=== PATIENT | female | born 1955 | race Caucasian/White ===

== ENCOUNTER 2017-04-06 10:54 | Emergency (ER) | payer SELFPAY ==
[2017-04-06 11:05] VITALS: RESP 16
[2017-04-06] MEDS ORDERED: SODIUM CHLORIDE 0.9% 1,000 ML IV STA ×2 (12:00)
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
[2017-04-06 13:01] LABS: Basophils % (A) 0 %; CH 28.8; CHCM 33.4; Eosinophils % (A) 0 %; HCT 42.7 % (34.0-46.0); HDW 2.46; HGB 14.1 gm/dL (11.4-16.0); Luc # (Auto) 0.14; Luc % (Auto) 1; Lymphocytes # (A) 1.7 k/uL (1.0-4.8); Lymphocytes % (A) 18 %; MCH 28.6 pg (25.0-35.0); MCHC 33.1 g/dL (31.0-37.0); MCV 86.6 fL (80.0-100.0); Mean Platelet Volume 7.2; Monocytes # (A) 0.4 k/uL (0-1.0); Monocytes % (A) 5 %; Neutrophils # (A) 7.2 k/uL (1.3-7.7); Neutrophils % (A) 76 %; RBC 4.94 m/uL (3.80-5.40); RDW 12.2 % (11.5-15.5); WBC 9.5 k/uL (3.8-10.6); WBC (Perox) 8.96
[2017-04-06 13:12] LABS: ALT 50 U/L (9-52); AST 24 U/L (14-36); Alkaline Phosphatase 72 U/L (38-126); Amylase <30 U/L (30-110); Anion Gap 10 mmol/L; Blood Urea Nitrogen 20 mg/dL (7-17); Calcium 9.8 mg/dL (8.4-10.2); Carbon Dioxide 28 mmol/L (22-30); Chloride 101 mmol/L (98-107); Glucose 135 mg/dL (74-99); Non-African American GFR(MDRD) >60 (>60 ml/min/1.73 sqM); Potassium 4.6 mmol/L (3.5-5.1); Sodium 139 mmol/L (137-145); Total Bilirubin 0.6 mg/dL (0.2-1.3); Total Protein 6.8 g/dL (6.3-8.2)
[2017-04-06 13:18] LABS: Creatine Kinase 43 U/L (30-135)
[2017-04-06 13:31] LABS: Creatine Kinase MB 1.1 ng/mL (0.0-2.4); Troponin I <0.012 ng/mL (0.000-0.034)
[2017-04-06 14:22] LABS: Appearance,Urine Cloudy (Clear); Bilirubin,Urine Negative (Negative); Glucose,Urine (UA) Negative (Negative); Ketones,Urine Negative (Negative); Leukocyte Esterase,Urine Large (Negative); Mucus,Urine Many /hpf; Nitrite,Urine Negative (Negative); PH, Urine 5.5 (5.0-8.0); Particle Count 23048; Protein,Urine 1+ (Negative); Specific Gravity,Urine 1.023 (1.001-1.035); Squamous Epithelial Cell,Urine 9 /hpf (0-4); UA Billing (MACRO vs. MICRO) MICRO; Urobilinogen,Urine <2.0 mg/dL (<2.0); WBC,Urine 28 /hpf (0-5)
--- NOTE | 2017-04-06 14:51 | US ---
EXAMINATION TYPE: US gallbladder DATE OF EXAM: 04/06/2017 COMPARISON: NONE CLINICAL HISTORY: Pain. Vomiting and diarrhea last night. Nausea and loss of appetite for 1 week EXAM MEASUREMENTS: Liver Length: 19.3 cm Gallbladder Wall: 0.2 cm CBD: 0.4 cm Right Kidney: 11.1 x 4.9 x 4.5 cm Pancreas: Obscured by bowel gas Liver: hyperechoic area noted adjacent to a hypoechoic focus next to the yordy hepatitis = 2.0 x 1.5 x 1.9cm Gallbladder: no evidence of stones Evidence for sonographic Lr's sign: no CBD: wnl Right Kidney: no evidence of hydronephrosis or mass There is no ascites. Right kidney shows normal cortical medullary differentiation. IMPRESSION: Findings may represent fatty infiltration of liver with some focal fatty sparing near the yordy hepatis, MRI of the liver could be performed for better characterization. There is hepatomegal y. Exam is somewhat limited.
[2017-04-06 15:24] VITALS: BP 131/78; PULSE 63; TEMP 97.9
--- NOTE | 2017-04-06 15:35 | XR ---
EXAMINATION TYPE: XR KUB DATE OF EXAM: 04/06/2017 3:25 PM CLINICAL HISTORY: Nausea and vomiting with abdominal pain. TECHNIQUE: Single upright abdominal radiograph was obtained. COMPARISON: Right upper quadrant ultrasound dated 04/06/2017. FINDINGS: Scattered gas is seen in non-distended small bowel loops. Gas and fecal material is seen in non-distended colon. There is no visceromegaly, pneumoperitoneum, or abnormal calcification apprecia kiersten. The lung bases are clear and the osseous structures are intact. IMPRESSION: Nonobstructive bowel gas pattern.
== END 2017-04-06 15:45 | disposition home or self-care (01) ==
LOC: EC 10:54
DX: K52.9 Noninfective gastroenteritis and colitis, unspecified (principal); Z87.891 Personal history of nicotine dependence; Z91.018 Allergy to other foods; Z91.048 Other nonmedicinal substance allergy status; Z88.6 Allergy status to analgesic agent
CPT/HCPCS: 36415; 74000; 76705; 80053; 81001; 82150; 82550; 82553; 83690; 84484; 85025; 96360; 96361; 99284

== ENCOUNTER 2019-10-15 17:11 | Emergency (ER) | payer OTHER ==
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
[2019-10-15 20:14] VITALS: BP 140/90; PULSE 80; RESP 18; TEMP 98.1
== END 2019-10-15 20:13 | disposition home or self-care (01) ==
LOC: EC 17:11
DX: R20.2 Paresthesia of skin (principal); R91.8 Other nonspecific abnormal finding of lung field; M79.622 Pain in left upper arm; M54.2 Cervicalgia; Z91.018 Allergy to other foods; Z88.6 Allergy status to analgesic agent; Z87.39 Personal history of other diseases of the musculoskeletal system and connective tissue; Z87.891 Personal history of nicotine dependence; V44.5XXA Car driver injured in collision with heavy transport vehicle or bus in traffic accident, initial encounter; Y92.488 Other paved roadways as the place of occurrence of the external cause; Y93.89 Activity, other specified
CPT/HCPCS: 70450; 71046; 72125; 99284

== ENCOUNTER → 2019-12-23 | Outpatient (CLI) | payer OTHER | END | disposition home or self-care (01) | LOC: RADMRIMAIN 18:34 | PROVIDERS: ATTEND Family Medicine | DX: Z53.9 Procedure and treatment not carried out, unspecified reason (principal) ==

== ENCOUNTER → 2020-03-25 | Outpatient (CLI) | payer OTHER ==
[2020-03-25 09:04] VITALS: BP 193/96; PULSE 73; RESP 14; TEMP 97.8
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
== END | disposition home or self-care (01) ==
LOC: PNWHC3 08:35
PROVIDERS: ATTEND Anesthesiology
DX: M54.5 Low back pain (principal); Z87.892 Personal history of anaphylaxis; Z88.6 Allergy status to analgesic agent; Z79.891 Long term (current) use of opiate analgesic; Z79.899 Other long term (current) drug therapy
CPT/HCPCS: 99211

== ENCOUNTER 2020-04-14 13:06 | Day surgery (SDC) | payer OTHER ==
[2020-04-10 13:03] VITALS: BMI 36.7
[~2020-04-14 13:06] MED LIST: LACTATED RINGERS 1,000 ML IV SCH
[2020-04-14 13:26] VITALS: TEMP 97.3
[2020-04-14] MEDS ORDERED: methylPREDNISolone ACETATE 40 MG/ML 1 ML VIAL ONE (13:32)
[2020-04-14] MEDS ORDERED: IOPAMIDOL M200 10 ML VIAL ONE (13:32)
[2020-04-14] MEDS ORDERED: fentaNYL (PF) 50 MCG/ML 2 ML AMP ONE (13:32)
[2020-04-14] MEDS ORDERED: MIDAZOLAM 2 MG/2 ML VIAL ONE (13:32)
--- NOTE | 2020-04-14 13:55 | P.PCN ---
Date of Procedure: 04/14/20 Procedure(s) Performed: PREOPERATIVE DIAGNOSIS:1- Lumbar radiculopathy . 2-left sacroiliitis. 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 PROCEDURE 1. Transforaminal epidural steroid injection under fluoroscopic guidance at left L4-5 level. (Fluoroscopy images stored on file in the radiology Department ) 2. Lumbar epidurogram . ANESTHESIA: Local with 1% lidocaine 3 ml , moderate sedation with intravenous Versed 2 mg and fentanyle 50 micrograms. EBL: Minimal PROCEDURE INDICATION: The patient with low back pain and radiculopathy symptoms unresponsive to conservative treatment. PROCEDURE DESCRIPTION / TECHNIQUE: The patient was seen and identified in the preoperative area. Risks, benefits, complications, and alternatives were discussed with the patient. The patient agreed to proceed with the procedure and signed the consent. IV was started, and vital signs were stable. Patient was taken to the OR and time out was completed. The patient was placed in the prone position on procedure table and a pillow was placed under the abdomen to reduce lumbar lordosis. The lumbosacral area was prepped and draped in the usual sterile fashion. Critical pause was taken. Vital signs were closely monitored during the procedure. Conscious sedation was used during the procedure to decrease patient s anxiety. Using oblique fluoroscopy, the chin of the ``Florin dog at left L4-5 level was identified, and the skin and deeper tissues just below was localized with 1% lidocaine. Subsequently, a 22-gauge 5-inch spinal needle was advanced under a tunneled view fluoroscopic guidance just underneath the chin of the ``Florin dog at the left L4-5 Under lateral fluoroscopy, the needle was then advanced to the posterior border of the interforaminal space. After negative aspiration of CSF and blood and with no paresthesias, 1 mL Isovue 200 contrast dye was injected excellent epidurogram and outlining of the nerve root Subsequently, 3 mL of block solution containing 80 mg Depo-Medrol and 2 mL of 0.9% normal saline PF was injected. Needle was removed intact . At the end of the procedure, skin was cleansed, and bandages were applied. COMPLICATIONS:none DISPOSITION / PLANS: The patient was placed in a supine position and transferred to the recovery area in a stable condition for observation. There was no evidence of lower extremity motor or sensory deficit after the procedure. Patient was discharged from the recovery room after meeting discharge criteria. Home discharge instructions were given to the patient by the staff. The patient was reexamined prior to discharge.
[2020-04-14 14:05] VITALS: RESP 16
[2020-04-14] MEDS ORDERED: IV FLUID CONTINUATION 750 ML IV ONE (14:06)
--- NOTE | 2020-04-14 14:25 | FL ---
EXAMINATION TYPE: FL guided pain mgmt statistic DATE OF EXAM: 04/14/2020 CLINICAL HISTORY: Low back pain. TECHNIQUE: Fluoroscopy. COMPARISON: None. FINDINGS: Fluoroscopic guidance was provided during pain relief procedure performed by Dr. Pineda . A total of 23 seconds of fluoroscopic time was utilized during the procedure and 1 spot images are acquired. Single image acquired shows needle localization in the lower lumbar spine. IMPRESSION: As Above.
[2020-04-14 14:36] VITALS: BP 131/79; PULSE 101
== END 2020-04-14 14:37 | disposition home or self-care (01) ==
LOC: ORPAIN 13:06
PROVIDERS: ATTEND Specialist
DX: M54.16 Radiculopathy, lumbar region (principal); M46.1 Sacroiliitis, not elsewhere classified; M96.1 Postlaminectomy syndrome, not elsewhere classified; Z78.0 Asymptomatic menopausal state; Z88.6 Allergy status to analgesic agent; Z91.018 Allergy to other foods
CPT/HCPCS: 64483; J2250; J1030; J3010; Q9966; 99152

== ENCOUNTER 2020-05-19 08:49 | Day surgery (SDC) | payer OTHER ==
[2020-05-14 11:39] VITALS: BMI 36.3
[2020-05-19] MEDS ORDERED: LACTATED RINGERS 1,000 ML IV SCH (09:11)
[2020-05-19 09:17] VITALS: RESP 18; TEMP 96.8
[2020-05-19] MEDS ORDERED: MIDAZOLAM 2 MG/2 ML VIAL ONE (09:55)
[2020-05-19] MEDS ORDERED: methylPREDNISolone ACETATE 40 MG/ML 1 ML VIAL ONE (09:55)
[2020-05-19] MEDS ORDERED: fentaNYL (PF) 50 MCG/ML 2 ML AMP ONE (09:55)
[2020-05-19] MEDS ORDERED: IOPAMIDOL M200 10 ML VIAL ONE (09:55)
--- NOTE | 2020-05-19 10:11 | P.PCN ---
Date of Procedure: 05/19/20 Procedure(s) Performed: PREOPERATIVE DIAGNOSIS:1- Lumbar radiculopathy . 2-left sacroiliitis. 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 PROCEDURE 1. Transforaminal epidural steroid injection under fluoroscopic guidance at left L4-5 level. (Fluoroscopy images stored on file in the radiology Department ) 2. Lumbar epidurogram . ANESTHESIA: Local with 1% lidocaine 3 ml , moderate sedation with intravenous Versed 1 mg and fentanyle 50 micrograms. EBL: Minimal PROCEDURE INDICATION: The patient with low back pain and radiculopathy symptoms unresponsive to conservative treatment. PROCEDURE DESCRIPTION / TECHNIQUE: The patient was seen and identified in the preoperative area. Risks, benefits, complications, and alternatives were discussed with the patient. The patient agreed to proceed with the procedure and signed the consent. IV was started, and vital signs were stable. Patient was taken to the OR and time out was completed. The patient was placed in the prone position on procedure table and a pillow was placed under the abdomen to reduce lumbar lordosis. The lumbosacral area was prepped and draped in the usual sterile fashion. Critical pause was taken. Vital signs were closely monitored during the procedure. Conscious sedation was used during the procedure to decrease patient s anxiety. Using oblique fluoroscopy, the chin of the ``Florin dog at left L4-5 level was identified, and the skin and deeper tissues just below was localized with 1% lidocaine. Subsequently, a 22-gauge 5-inch spinal needle was advanced under a tunneled view fluoroscopic guidance just underneath the chin of the ``Florin dog at the left L4-5 Under lateral fluoroscopy, the needle was then advanced to the posterior border of the interforaminal space. After negative aspiration of CSF and blood and with no paresthesias, 1 mL Isovue 200 contrast dye was injected excellent epidurogram and outlining of the nerve root Subsequently, 3 mL of block solution containing 80 mg Depo-Medrol and 2 mL of 0.9% normal saline PF was injected. Needle was removed intact . At the end of the procedure, skin was cleansed, and bandages were applied. COMPLICATIONS:none DISPOSITION / PLANS: The patient was placed in a supine position and transferred to the recovery area in a stable condition for observation. There was no evidence of lower extremity motor or sensory deficit after the procedure. Patient was discharged from the recovery room after meeting discharge criteria. Home discharge instructions were given to the patient by the staff. The patient was reexamined prior to discharge.
[2020-05-19 10:20] VITALS: PULSE 108
[2020-05-19 10:34] VITALS: BP 148/90
[2020-05-19] MEDS ORDERED: IV FLUID CONTINUATION 1,000 ML IV ONE (10:34)
--- NOTE | 2020-05-19 14:00 | FL ---
Fluoroscopy HISTORY: Pain 8 seconds fluoroscopy time supplied to the referring clinician. 1 intraoperative C-arm images docume nt the procedure. See dictated report from anesthesia.
== END 2020-05-19 10:44 | disposition home or self-care (01) ==
LOC: ORPAIN 08:49
PROVIDERS: ATTEND Specialist
DX: M96.1 Postlaminectomy syndrome, not elsewhere classified (principal); M46.1 Sacroiliitis, not elsewhere classified; Z78.0 Asymptomatic menopausal state
CPT/HCPCS: 64483; J2250; J1030; J3010; Q9966; 99152

== ENCOUNTER → 2020-06-08 | Outpatient (CLI) | payer OTHER ==
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
[2020-06-08 14:36] VITALS: BP 156/92; PULSE 113; RESP 18; TEMP 98
== END | disposition home or self-care (01) ==
LOC: PNWHC3 13:50
PROVIDERS: ATTEND Anesthesiology
DX: M96.1 Postlaminectomy syndrome, not elsewhere classified (principal); M48.061 Spinal stenosis, lumbar region without neurogenic claudication; M51.36 Other intervertebral disc degeneration, lumbar region; M47.816 Spondylosis without myelopathy or radiculopathy, lumbar region
CPT/HCPCS: 99211

== ENCOUNTER 2020-07-07 12:45 | Day surgery (SDC) | payer OTHER ==
[2020-07-03 16:10] VITALS: BMI 36.6
[2020-07-07 13:13] VITALS: TEMP 97
[2020-07-07] MEDS ORDERED: LACTATED RINGERS 1,000 ML IV ONE ×2 (13:14)
[2020-07-07] MEDS ORDERED: fentaNYL (PF) 50 MCG/ML 2 ML AMP ONE (13:17)
[2020-07-07] MEDS ORDERED: MIDAZOLAM 2 MG/2 ML VIAL ONE (13:17)
[2020-07-07] MEDS ORDERED: DEXAMETHASONE SOD PHOSPHATE 10 MG/ML 1 ML VIAL ONE (13:17)
[2020-07-07] MEDS ORDERED: IOPAMIDOL M200 10 ML VIAL ONE (13:17)
--- NOTE | 2020-07-07 13:39 | P.PCN ---
Date of Procedure: 07/07/20 Description of Procedure: PREOPERATIVE DIAGNOSIS: Lumbar radiculopathy POSTOPERATIVE DIAGNOSIS: Lumbar radiculopathy Attending physician: Chandrakant Gay M.D. PROCEDURE 1. Transforaminal epidural steroid injection under fluoroscopic guidance L3-4 and L4-L5 level, left side 2. Lumbar epidurogram ANESTHESIA: Local with 1% lidocaine 3 ml ; IV sedation with Versed and fentanyl , sedation time 17 min PROCEDURE INDICATION: The patient with low back pain and radiculopathy symptoms unresponsive to conservative treatment. Fluoroscopy was used for the procedure and fluoroscopic images were saved to the radiology portion of patient's chart. PROCEDURE DESCRIPTION / TECHNIQUE: The patient was seen and identified in the preoperative area. Risks, benefits, complications, and alternatives were discussed with the patient. The patient agreed to proceed with the procedure and signed the consent. IV was started, and vital signs were stable. Patient was taken to the OR and time out was completed. The patient was placed in the prone position on procedure table and a pillow was placed under the abdo men to reduce lumbar lordosis. The lumbosacral area was prepped and draped in the usual sterile fashion. Vital signs were closely monitored during the procedure. Conscious sedation was used. Using oblique fluoroscopy, the chin of the ``Florin dog and the skin and deeper tissues just below was localized with 1% lidocaine. Subsequently, a 22- gauge 3.5-inch spinal needle was advanced under a tunneled view fluoroscopic guidance just underneath the chin of the ``Florin dog . Under lateral fluoroscopy, the needle was then advanced to the posterior border of the foramen. After negative aspiration of CSF and blood and with no paresthesias, 1 mL of Isovue-200 contrast dye was injected under live fluoroscopy and there was no evidence of intravascular injection. The injectate solution consisting of 5 mg of dexamethasone with 1.5 mL of 1% lidocaine was then delivered. The needle was withdrawn intact. Procedure was repeated at the below level L4-L5. Total of 10 mg of dexamethasone was given. At the end of the procedure, skin was cleansed, and bandages were applied. COMPLICATIONS: None COMMENTS: DISPOSITION / PLANS: The patient was placed in a supine position and transferred to the recovery area in a stable condition for observation. There was no evidence of lower extremity motor or sensory deficit after the procedure. Patient was discharged from the recovery room after meeting discharge criteria. Home discharge instructions were given to the patient by the staff. The patient will follow up in clinic in 2-4 weeks.
[2020-07-07] MEDS ORDERED: IV FLUID CONTINUATION 450 ML IV ONE (13:46)
[2020-07-07 13:55] VITALS: PULSE 105; RESP 20
--- NOTE | 2020-07-07 13:58 | FL ---
EXAMINATION TYPE: FL guided pain mgmt statistic DATE OF EXAM: 07/07/2020 HISTORY: Fluoroscopy time 41 seconds of fluoroscopy provided. IMPRESSION: 1. Fluoroscopy time.
[2020-07-07 14:06] VITALS: BP 134/77
== END 2020-07-07 14:17 | disposition home or self-care (01) ==
LOC: ORPAIN 12:45
PROVIDERS: ATTEND Anesthesiology
DX: M54.16 Radiculopathy, lumbar region (principal); Z78.0 Asymptomatic menopausal state; Z88.6 Allergy status to analgesic agent; Z79.891 Long term (current) use of opiate analgesic
CPT/HCPCS: 64483; 64484; J2250; J1100; J3010; Q9966; 99152

== ENCOUNTER → 2020-07-29 | Outpatient (CLI) | payer OTHER ==
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
== END ==
CPT/HCPCS: 99211

== ENCOUNTER → 2020-10-30 | Outpatient (CLI) | payer SELFPAY ==
[2020-10-30 15:32] LABS: Appearance,Urine Clear (Clear); Bilirubin,Urine Negative (Negative); Blood,Urine Small (Negative); Color,Urine Yellow; Glucose,Urine (UA) Negative (Negative); Ketones,Urine Negative (Negative); Leukocyte Esterase,Urine Negative (Negative); Mucus,Urine Rare /hpf; Nitrite,Urine Negative (Negative); Protein,Urine Negative (Negative); RBC,Urine 7 /hpf (0-5); Specific Gravity,Urine 1.022 (1.001-1.035); Squamous Epithelial Cell,Urine 1 /hpf (0-4); Urobilinogen,Urine <2.0 mg/dL (<2.0); WBC,Urine 1 /hpf (0-5)
[2020-10-30 15:49] LABS: INR 0.9 (<1.2); Partial Thromboplastin Time 22.1 sec (22.0-30.0)
[2020-10-30 23:21] LABS: HCT 40.1 % (37.2-46.3); HGB 12.6 g/dL (12.0-15.0); MCH 26.8 pg (27.0-32.0); MCHC 31.4 g/dL (32.0-37.0); MCV 85.3 fL (80.0-97.0); Mean Platelet Volume 11.2 fL (9.5-12.2); Platelet Count 267 X 10*3/uL (140-440); RDW 11.9 % (11.5-14.5); WBC 8.13 X 10*3/uL (4.50-10.00)
[2020-10-31 00:51] LABS: Hemoglobin A1C 8.4 % (4.0-6.0)
[2020-10-31 02:26] LABS: African American GFR (CKD) 111.6 (60.0-200.0); Calcium 9.8 mg/dL (8.7-10.3); Carbon Dioxide 27.7 mmol/L (21.6-31.8); Chloride 106 mmol/L (96-109); Glucose 200 mg/dL (70-110); Non-African American GFR(CKD) 96.3 (60.0-200.0); Potassium 4.7 mmol/L (3.5-5.5); Sodium 144 mmol/L (135-145)
== END | disposition home or self-care (01) ==
LOC: LABWHC1 14:20
PROVIDERS: ATTEND Orthopaedic Surgery
DX: Z01.812 Encounter for preprocedural laboratory examination (principal)
CPT/HCPCS: 36415; 80048; 81001; 82306; 83036; 84134; 84439; 84443; 84481; 85027; 85610; 85730; 87070

== ENCOUNTER → 2020-11-02 | Outpatient (CLI) | payer SELFPAY ==
--- NOTE | 2020-11-02 11:06 | XR ---
EXAMINATION TYPE: XR thoracic spine 2V DATE OF EXAM: 11/02/2020 COMPARISON: NONE HISTORY: Pain TECHNIQUE: 3 views submitted FINDINGS: Alignment is anatomic. There is no compression deformities hypertrophic and degenerative changes not ed. IMPRESSION: 1. Multilevel degenerative disc disease.
--- NOTE | 2020-11-02 11:08 | XR ---
EXAM TYPE: LUMBAR SPINE X RAY SERIES COMPARISON: 01/13/2012 HISTORY: Pain TECHNIQUE: 4 views are submitted. FINDINGS: Alignment is anatomic. The pedicles are intact. The transverse processes are intact. There is diff use osteopenia. Multilevel hypertrophic degenerative changes seen. Stable grade 1 anterolisthesis L4 on L5. Chronic appearing deformity superior endplate L2. Facet arthropathy L3-4, L4-5 and L5-S1. Ante rolisthesis present on both flexion and extension views at L4-5. IMPRESSION: 1. Multilevel degenerative disc disease with grade 1 anterolisthesis L4 on L5. Similar to the prior e xam. 2. Multilevel facet arthropathy.
== END | disposition home or self-care (01) ==
LOC: RADXRMAIN 09:35
PROVIDERS: ATTEND Orthopaedic Surgery
DX: M51.35 Other intervertebral disc degeneration, thoracolumbar region (principal); M12.88 Other specific arthropathies, not elsewhere classified, other specified site; M43.16 Spondylolisthesis, lumbar region
CPT/HCPCS: 72070; 72114

== ENCOUNTER → 2020-12-17 | Outpatient (CLI) | payer OTHER ==
[2020-12-17 14:35] LABS: HCT 40.6 % (34.0-46.0); HGB 13.6 gm/dL (11.4-16.0); MCH 28.1 pg (25.0-35.0); MCHC 33.4 g/dL (31.0-37.0); MCV 84.1 fL (80.0-100.0); Mean Platelet Volume 7.7; Platelet Count 283 k/uL (150-450); RBC 4.82 m/uL (3.80-5.40); RDW 12.9 % (11.5-15.5); WBC 7.1 k/uL (3.8-10.6)
[2020-12-17 14:44] LABS: African American GFR (CKD) >90 (>60 ml/min/1.73 sqM); Anion Gap 7 mmol/L; Blood Urea Nitrogen 13 mg/dL (7-17); Carbon Dioxide 27 mmol/L (22-30); Chloride 106 mmol/L (98-107); Non-African American GFR(CKD) >90 (>60 ml/min/1.73 sqM); Potassium 4.5 mmol/L (3.5-5.1); Sodium 140 mmol/L (137-145)
== END | disposition home or self-care (01) ==
LOC: LABPAT 12:44
PROVIDERS: ATTEND Internal Medicine Interventional Cardiology
DX: Z01.812 Encounter for preprocedural laboratory examination (principal); I48.11 Longstanding persistent atrial fibrillation
CPT/HCPCS: 36415; 80051; 82565; 84520; 85027

== ENCOUNTER 2020-12-21 05:51 | Day surgery (SDC) | payer OTHER ==
[2020-12-17 12:06] VITALS: BMI 37.8
[2020-12-21] MEDS ORDERED: SODIUM CHLORIDE 0.9% 1,000 ML IV SCH (06:35)
[2020-12-21] MEDS ORDERED: LACTATED RINGERS 1,000 ML IV SCH (06:35)
[2020-12-21 06:42] LABS: Glucose,Whole Blood 140 mg/dL (75-99)
[2020-12-21 06:45] VITALS: RESP 16; TEMP 98
[2020-12-21] MEDS: BENZOCAINE SPRAY 1 CAN TOPICAL ONE ×2 (07:30→07:40)
[2020-12-21] MEDS ORDERED: LIDOCAINE 1% INJ 10MG/ML (20 ML MDV) ONE (07:30)
[2020-12-21] MEDS ORDERED: PROPOFOL 10 MG/ML 20 ML VIAL IV ONE (07:30)
--- NOTE | 2020-12-21 13:07 | CE ---
CARDIAC ELECTROPHYSIOLOGY REPORT DATE OF SERVICE: December 21, 2020. PERFORMING PHYSICIAN: Adrián Dowell MD. PROCEDURE PERFORMED: Cardioversion of atrial fibrillation. COMPLICATION: None. LEVEL OF SEDATION: The procedure was performed using propofol with LABORER PLUMBING in the room. PROCEDURE DESCRIPTION: After transesophageal echocardiogram was performed and intracardiac thrombus was ruled out, we pursued cardioversion with the patient. Cardioverted from atrial fibrillation to normal sinus mechanism using 200 joules on first attempt. CONCLUSION: Successful cardioversion of atrial fibrillation to normal sinus mechanism using 200 joules on first attempt. MMODL / IJN: [id number] /
--- NOTE | 2020-12-21 13:08 | ECHOT ---
TRANSESOPHAGEAL ECHOCARDIOGRAM DATE OF SERVICE: December 21, 2020. PERFORMING PHYSICIAN: Adrián Dowell MD. PROCEDURE PERFORMED: Transesophageal echocardiogram. INDICATION: Rule out intracardiac thrombus before cardioversion. COMPLICATION: None. LEVEL OF SEDATION: The procedure was performed using propofol with BUSINESS DEVELOPMENT REPRESENTATIVE in the room. PROCEDURE DESCRIPTION: After obtaining informed consent, the patient was brought to the recovery room. The pulse oximetry and heart rate monitors were attached to the patient. Subsequently and after the patient was sedated using propofol, the transesophageal echocardiogram probe was advanced to the mid esophageal where 2D echocardiogram images as well as color Doppler images of various cardiac structures were obtained. Particular attention was made to the left atrial appendage. The procedure was completed without any complication. FINDINGS: The left ventricle is dilated. The left ventricular systolic function is impaired with EF around 40% with global hypokinesia. The right ventricle appeared to be of normal size and function. The left atrium appeared to be mildly dilated. The left atrial appendage appeared to be free from any thrombus. The interatrial septum appeared to be intact without any evidence of shunt. The aortic valve appeared to be trileaflet valve without stenosis or regurgitation. The mitral valve seems to be mildly thickened with moderate mitral regurgitation. There was mild to moderate tricuspid regurgitation. CONCLUSION: 1. Intact left atrial appendage without any evidence of thrombus. 2. Intact interatrial septum without any evidence of shunt. 3. Impaired LV function with EF around 40% with global hypokinesia. 4. Thickened mitral valve leaflets with moderate mitral regurgitation. 5. Trileaflet aortic valve without stenosis or regurgitation. 6. Normal pulmonic valve with mild pulmonic insufficiency. 7. No evidence of pericardial effusion. MMODL / IJN: [id number] /
[2020-12-21 16:25] VITALS: BP 131/69; PULSE 78
== END 2020-12-21 09:30 | disposition home or self-care (01) ==
LOC: CATHCVL 05:51 → EDSTATUS 07:30 → CATHCVL 09:30
PROVIDERS: ATTEND Internal Medicine Interventional Cardiology
DX: I48.91 Unspecified atrial fibrillation (principal); E11.9 Type 2 diabetes mellitus without complications; I10 Essential (primary) hypertension; I48.0 Paroxysmal atrial fibrillation; I34.0 Nonrheumatic mitral (valve) insufficiency; E07.9 Disorder of thyroid, unspecified; Q21.1 Atrial septal defect; I51.89 Other ill-defined heart diseases; Z79.01 Long term (current) use of anticoagulants
CPT/HCPCS: 93312; 93320; 93325; 92960; J2001; J2704

== ENCOUNTER → 2021-04-20 | Outpatient (CLI) | payer OTHER ==
[2021-04-20 11:22] LABS: INR 0.9 (<1.2); Partial Thromboplastin Time 23.8 sec (22.0-30.0)
[2021-04-20 11:44] LABS: Appearance,Urine Clear (Clear); Bilirubin,Urine Negative (Negative); Blood,Urine Negative (Negative); Color,Urine Yellow; Glucose,Urine (UA) Negative (Negative); Ketones,Urine Negative (Negative); Leukocyte Esterase,Urine Negative (Negative); Nitrite,Urine Negative (Negative); PH, Urine 7.5 (5.0-8.0); Protein,Urine Negative (Negative); Urobilinogen,Urine <2.0 mg/dL (<2.0)
[2021-04-20 14:27] LABS: HCT 39.3 % (37.2-46.3); HGB 12.3 g/dL (12.0-15.0); MCH 27.7 pg (27.0-32.0); MCHC 31.3 g/dL (32.0-37.0); MCV 88.5 fL (80.0-97.0); Mean Platelet Volume 10.4 fL (9.5-12.2); Platelet Count 259 X 10*3/uL (140-440); RBC 4.44 X 10*6/uL (4.10-5.20); RDW 13.2 % (11.5-14.5); WBC 6.97 X 10*3/uL (4.50-10.00)
[2021-04-20 16:29] LABS: African American GFR (CKD) 117.9 (60.0-200.0); BUN/Creat Ratio 26.92 Ratio (12.00-20.00); Blood Urea Nitrogen 13.7 mg/dL (9.0-27.0); Calcium 9.2 mg/dL (8.7-10.3); Carbon Dioxide 27.9 mmol/L (20.0-27.5); Chloride 103 mmol/L (96-109); Glucose 151 mg/dL (70-110); Non-African American GFR(CKD) 101.7 (60.0-200.0); Potassium 4.8 mmol/L (3.5-5.5); Prealbumin 19.1 mg/dL (18.0-42.0); Sodium 142 mmol/L (135-145)
== END | disposition home or self-care (01) ==
LOC: LABWHC1 09:45
PROVIDERS: ATTEND Orthopaedic Surgery
DX: Z01.812 Encounter for preprocedural laboratory examination (principal)
CPT/HCPCS: 36415; 80048; 81003; 82306; 84134; 84439; 84443; 84481; 85027; 85610; 85730

== ENCOUNTER → 2021-07-19 | Outpatient (CLI) | payer OTHER ==
[2021-07-19 18:19] LABS: HCT 40.7 % (37.2-46.3); HGB 12.4 g/dL (12.0-15.0); MCH 27.4 pg (27.0-32.0); MCHC 30.5 g/dL (32.0-37.0); Mean Platelet Volume 10.3 fL (9.5-12.2); NRBC Per 100 WBC 0 /100 WBCS (0.0-0.0); Platelet Count 301 X 10*3/uL (140-440); RBC 4.52 X 10*6/uL (4.10-5.20); WBC 9.09 X 10*3/uL (4.50-10.00)
[2021-07-19 18:53] LABS: T4, Free (Free Thyroxine) 0.86 ng/dL (0.800-1.800)
== END | disposition home or self-care (01) ==
LOC: LABWHC1 13:43
PROVIDERS: ATTEND Internal Medicine
DX: E11.65 Type 2 diabetes mellitus with hyperglycemia (principal); E05.90 Thyrotoxicosis, unspecified without thyrotoxic crisis or storm
CPT/HCPCS: 36415; 83036; 84439; 84443; 84450; 84460; 84481; 85027

== ENCOUNTER → 2021-08-19 | Outpatient (CLI) | payer OTHER ==
[2021-08-19 14:38] LABS: HGB 13.3 g/dL (12.0-15.0); MCH 27.7 pg (27.0-32.0); MCHC 30.9 g/dL (32.0-37.0); MCV 89.6 fL (80.0-97.0); Mean Platelet Volume 10.4 fL (9.5-12.2); NRBC Per 100 WBC 0 /100 WBCS (0.0-0.0); Platelet Count 299 X 10*3/uL (140-440); RDW 13.2 % (11.5-14.5); WBC 6.87 X 10*3/uL (4.50-10.00)
[2021-08-19 16:11] LABS: African American GFR (CKD) 106.1 (60.0-200.0); Anion Gap 12.3 mmol/L (10.00-18.00); Blood Urea Nitrogen 13.4 mg/dL (9.0-27.0); Carbon Dioxide 25.7 mmol/L (20.0-27.5); Non-African American GFR(CKD) 91.6 (60.0-200.0); Potassium 5.2 mmol/L (3.5-5.5)
== END | disposition home or self-care (01) ==
LOC: LABPAT 11:12
PROVIDERS: ATTEND Internal Medicine Interventional Cardiology
DX: Z01.812 Encounter for preprocedural laboratory examination (principal); I48.0 Paroxysmal atrial fibrillation
CPT/HCPCS: 80051; 82565; 84520; 85027

== ENCOUNTER 2021-12-24 07:16 | Day surgery (SDC) | payer MEDICARE, OTHER ==
[2021-12-21 16:02] VITALS: BMI 40.3
[~2021-12-24 07:16] MED LIST changes: -LACTATED RINGERS 1,000 ML IV SCH; +SODIUM CHLORIDE 0.9% 1,000 ML IV SCH
[2021-12-24] MEDS ORDERED: SODIUM CHLORIDE 0.9% 500 ML 500 ML IV ONE (07:37)
[2021-12-24 07:55] LABS: Glucose,Whole Blood 125 mg/dL (70-110)
[2021-12-24 08:06] VITALS: TEMP 98.8
[2021-12-24 08:43] LABS: African American GFR (CKD) >90 (>60 ml/min/1.73 sqM); Anion Gap 6 mmol/L; Blood Urea Nitrogen 11 mg/dL (7-17); Calcium 8.5 mg/dL (8.4-10.2); Carbon Dioxide 27 mmol/L (22-30); Chloride 107 mmol/L (98-107); Glucose 122 mg/dL (74-99); Non-African American GFR(CKD) >90 (>60 ml/min/1.73 sqM); Sodium 140 mmol/L (137-145)
[2021-12-24 08:47] LABS: Potassium 4.5 mmol/L (3.5-5.1)
[2021-12-24] MEDS ORDERED: PROPOFOL 10 MG/ML 20 ML VIAL IV ONE (09:12)
--- NOTE | 2021-12-24 09:19 | P.PCN ---
Date of Procedure: 12/24/21 Operative Findings: Cardioversion Report Performing physician Adrián Dowell M.D. Procedure performed Successful cardioversion of atrial fibrillation to normal sinus mechanism using 200 J at first attempt Indication Symptomatic atrial fibrillation Complication None Level of sedation The procedure was performed under deep sedation using propofol with LEAD REFINERY SUPERVISOR in the room Procedure description After obtaining an informed consent the patient was brought to the recovery room. Sedation was introduced using propofol with LEAD REFINERY SUPERVISOR in the room. Subsequently the patient cardioverted from atrial fibrillation to normal sinus mechanism using 200 J and first attempt Conclusion Successful cardioversion of atrial fibrillation to normal sinus mechanism using 200 J Postprocedure management Continue the current medical regimen Continue oral anticoagulation Follow-up with the patient
[2021-12-24 09:26] VITALS: RESP 16
[2021-12-24 10:43] VITALS: BP 143/66; PULSE 57
== END 2021-12-24 10:56 | disposition home or self-care (01) ==
LOC: CATHCVL 07:16
PROVIDERS: ATTEND Internal Medicine Interventional Cardiology
DX: I48.0 Paroxysmal atrial fibrillation (principal); Z20.822 Contact with and (suspected) exposure to COVID-19; I10 Essential (primary) hypertension; E11.9 Type 2 diabetes mellitus without complications; Z88.6 Allergy status to analgesic agent; Z91.018 Allergy to other foods; Z91.09 Other allergy status, other than to drugs and biological substances; Z79.84 Long term (current) use of oral hypoglycemic drugs; Z79.01 Long term (current) use of anticoagulants; Z79.899 Other long term (current) drug therapy; Z87.891 Personal history of nicotine dependence; Z80.9 Family history of malignant neoplasm, unspecified; Z82.49 Family history of ischemic heart disease and other diseases of the circulatory system
CPT/HCPCS: 92960; 80048; 87635; J2704